=== PATIENT | female | born 1945 | race Caucasian/White ===

== ENCOUNTER 2017-05-03 11:59 | Outpatient (CLI) | payer MEDICARE, OTHER ==
--- NOTE | 2017-05-03 14:15 | SJPRAD ---
LEFT HIP TWO VIEWS: History: Left hip pain. Patient heard a pop while doing yoga. Comparison: None. FINDINGS: Hip joint spaces are preserved. No fracture or dislocation. IMPRESSION: No fracture or dislocation. POS: GAGE
--- OUTSIDE RECORDS SUMMARY | 2017-05-04 19:38 | XMS | Clinical Summary ---
:1945 Author Organization [facility] Address [address] [place] [address] Phone Care Team Providers Name Role Phone , Primary Care Provider Unavailable Allergies Not on File Current Medications Not on file Active Problems Not on file Social History Tobacco Use Types Packs/Day Years Used Date Never Assessed Sex Assigned at Date Recorded Not on file Last Filed Vital Signs Not on file Plan of Treatment Not on file Results Not on filefrom Last 3 Months
== END 2017-05-03 12:00 | disposition home or self-care (01) ==
LOC: MWLC RAD 11:59
PROVIDERS: ATTEND Internal Medicine Geriatric Medicine
DX: M25.552 Pain in left hip (principal)

== ENCOUNTER 2017-12-25 11:38 | Outpatient (CLI) | payer MEDICARE, OTHER ==
[2017-12-25 13:07] LABS: #Basophils 0.1 thou/uL (0.0-0.2); #Eosinphils 0.1 thou/uL (0.0-0.7); #Lymphocytes 1.4 thou/uL (1.20-3.40); #Monocytes 0.3 thou/uL (0.11-0.59); #Neutrophils 2.9 thou/uL (1.40-6.50); %Basophils 1.1 % (0.0-1.0); %Eosinophils 2.2 % (0.0-10.0); %Lymphocytes 30.2 % (21.0-51.0); %Monocytes 6.3 % (0.0-10.0); %Neutrophils 60.2 % (42.0-75.0); Hemoglobin 13.2 g/dL (12.0-16.0); Mean Corpuscular HGB CONC 33.6 g/dL (32.0-36.0); Mean Corpuscular Hemoglobin 30.9 pg (27.0-31.0); Mean Platelet Volume 7.7 fL (7.4-10.4); Platelet Count 196 thou/uL (130-400); RBC Distribution Width 11.3 % (11.5-14.5); Red Blood Cell (RBC) Count 4.28 mill/uL (4.20-5.40); White Blood Cell (WBC) Count 4.8 thou/uL (4.8-10.8)
== END 2017-12-25 11:39 | disposition home or self-care (01) ==
LOC: LABBT 11:38
PROVIDERS: ATTEND Obstetrics & Gynecology
DX: Z01.812 Encounter for preprocedural laboratory examination (principal); N95.0 Postmenopausal bleeding
CPT/HCPCS: 85025

== ENCOUNTER 2017-12-26 10:04 | Day surgery (SDC) | payer MEDICARE, OTHER ==
--- NOTE | 2017-12-24 16:16 | HP ---
She is scheduled for surgery on 12/26/2017 HISTORY OF PRESENT ILLNESS: Ms. Forrest is a 72-year-old white female who was referred for some pos tmenopausal bleeding. She has a history of tamoxifen use for adjuvant therapy for history of DCIS of the breast. She described episodes of some light vaginal bleeding like a light menses. Her last bl eed was approximately a few months ago. Due to this history, she was evaluated in my office and was noted to have endometrial biopsy showing scant superficial strips of benign columnar epithelium consi stent with atrophic endometrium. She also had a Pap smear that was negative and negative high-risk H PV findings. Due to the vaginal bleeding and a history of tamoxifen use, she also underwent a transv aginal ultrasound in my office showing the uterus to measure 8.9 x 3.9 cm with a thickened endometria l lining of 10.4 mm. Right and left ovaries showed no masses. No abnormal fluid collections were se en. PAST MEDICAL HISTORY: As noted, DCIS of the breast and also chronic hypertension and glaucoma. OBSTETRICS HISTORY: She has 2 spontaneous vaginal delivery. SOCIAL HISTORY: Nonsmoker, no alcohol use. She is . FAMILY HISTORY: Essential hypertension, heart disease. PHYSICAL EXAMINATION: VITAL SIGNS: Her blood pressure was 150/90, pulse 71 and regular, respirations 18, height 64 inches, weight 156 pounds with a BMI 26.8. HEENT: Within normal limits. CHEST: Clear to auscultation. HEART: Regular rate and rhythm. S1, S2 heart sounds. No murmurs, rubs or gallops. ABDOMEN: Soft, nontender, nondistended with no palpable masses. PELVIC: Vulva and vagina had no lesions. Cervix had no lesions. Uterus small and nontender. Adnex a were nontender with no masses. Uterus sounded to 8.5 cm with 2 passes. ASSESSMENT: This is a 72-year-old white female on tamoxifen with thickened endometrium of 10 mm seen on transvaginal ultrasound after an episode of postmenopausal bleeding. Endometrial biopsy showed n o hyperplasia or malignancy, but did not correlate with endometrial thickness on ultrasound evaluatio n. PLAN: Proceed with diagnostic hysteroscopy with D&C to rule out any polyps or any other abnormalitie s. Risk and benefits of procedure have been discussed in detail and set for surgery on 12/26/2017.
[2017-12-25 12:12] VITALS: BMI 25.7
[2017-12-26] MEDS ORDERED: CEFAZOLIN/Water 2 GM/20 ML SYRINGE ONE (11:14)
[2017-12-26] MEDS ORDERED: Fentanyl 100 MCG/2 ML VIAL ONE (11:54)
[2017-12-26] MEDS ORDERED: Succinylcholine Chloride 20 MG/ML 10 ml SYRINGE FS ONE (11:54)
--- NOTE | 2017-12-26 13:02 | OP ---
DATE OF PROCEDURE: 12/26/2017 PREOPERATIVE DIAGNOSES: 1. A 72-year-old white female with a history of postmenopausal bleeding episode. 2. Prior tamoxifen use. POSTOPERATIVE DIAGNOSES: 1. A 72-year-old white female with a history of postmenopausal bleeding episode. 2. Prior tamoxifen use. PROCEDURE PERFORMED: Diagnostic hysteroscopy, D&C. SURGEON: Minna Sánchez M.D. ANESTHESIA: General. ESTIMATED BLOOD LOSS: Less than 10 mL. COMPLICATIONS: None. COUNTS: Correct x2. PATHOLOGY: Endometrial curettings. FINDINGS: 1. Normal endocervical canal and normal atrophic appearing endometrial cavity with no evidence of an y polyps or lesions seen. 2. Fluid deficit of hysteroscopic distention media was 90 mL of normal saline. DISPOSITION: Recovery room and then plan for discharge home. DESCRIPTION OF OPERATIVE PROCEDURE: The patient previously received informed consent in regards to azalia rangel. She was taken back to the operating room where she received a general anesthetic agent witho ut complications, placed in dorsal lithotomy position with use of Odell stirrups, prepped and draped in usual sterile fashion. In and out catheterization of bladder was performed at this time. A side- arm speculum was placed in the vagina. Anterior lip of the cervix grasped with single-tooth tenaculu m. The uterus sounded to 8 cm and Helton dilators were utilized to dilate the cervix up to size 18 Pr att dilator. Diagnostic 5 mm Truclear hysteroscope device was then placed through the cervix into th e endometrial cavity with the previously mentioned findings. The photodocumentation of this was perf ormed. There was no obvious lesion seen and therefore sharp curettage was then performed, removing a ny of the endometrial tissue for further diagnosis. The hysteroscope had been removed. The tenaculu m was then removed from the cervix. Pressure at the tenaculum site was applied with a sponge stick w ith hemostasis being achieved. The patient was awakened from anesthesia, transferred to the recovery in stable condition and planned for discharge home from day stay and have a followup in 4 weeks.
== END 2017-12-26 14:28 | disposition home or self-care (01) ==
LOC: SDC 10:04
PROVIDERS: ATTEND Obstetrics & Gynecology
PROC: 0UDB8ZX Extraction of Endometrium, Via Natural or Artificial Opening Endoscopic, Diagnostic (ICD-10-PCS; principal; 2017-12-26)
DX: N95.0 Postmenopausal bleeding (principal); I10 Essential (primary) hypertension; H40.9 Unspecified glaucoma; Z79.810 Long term (current) use of selective estrogen receptor modulators (SERMs); Z91.040 Latex allergy status; Z79.899 Other long term (current) drug therapy
CPT/HCPCS: 88305; J3010